=== PATIENT | male | born 1990 | race African-American/Black ===

== ENCOUNTER 2021-12-10 20:46 | Emergency (ER) | payer MEDICAID ==
[~2021-12-10] VITALS: Ht 193 cm; Wt 227.3 kg
[2021-12-10 20:58] VITALS: BP 164/92
[2021-12-10] MEDS ORDERED: IBUPROFEN 600MG TABLET PO STA (22:05)
[2021-12-11] MEDS ORDERED: IBUP-2029 MT (02:55)
== END 2021-12-11 03:23 | disposition left against medical advice (07) ==
LOC: ER 20:46
DX: Z53.21 Procedure and treatment not carried out due to patient leaving prior to being seen by health care provider (principal)
CPT/HCPCS: 71045; 72100; 99284